=== PATIENT | male | born 1950 | race Caucasian/White ===

== ENCOUNTER 2018-03-19 12:24 | Emergency (ER) | payer OTHER, SELFPAY ==
--- NOTE | 2018-03-19 13:28 | RAD REPORT ---
EXAM DESCRIPTION: RAD - Chest Single View - 03/19/2018 1:09 pm CLINICAL HISTORY: syncope Chest pain. COMPARISON: No comparisons FINDINGS: Portable technique limits examination quality. The lungs are grossly clear. The heart is normal in size. No displaced fractures. IMPRESSION: No acute intrathoracic process suspected.
[2018-03-19] MEDS ORDERED: NA CHLORIDE 0.9% 1,000 ML ONE (13:33)
[2018-03-19 14:20] LABS: Absolute Lymphocytes (CBC) 2.1 K/uL (0.7-4.9); Absolute Monocytes 0.8 K/uL (0.1-1.3); Absolute Neutrophil 8.1 K/uL (1.8-8.0); Basophils % 0.3 % (0-1.3); Eosinophils % 0.4 % (0-4.4); Hematocrit 49.8 % (39.6-49.0); Lymphocytes % 18.8 % (15.3-44.8); MCH 30.7 pg (27.0-35.0); MCV 90.5 fL (80-100); MPV 8.8 fL (7.6-11.3); Monocytes % 7.1 % (3.3-12.3)
--- NOTE | 2018-03-19 14:27 | EKG ---
Test Date: 2018-03-19 Test Time: 12:37:56 Professional Caster: SONNY MEASUREMENT RESULTS: Intervals: Rate: 48 WY: 182 QRSD: 100 QT: 500 QTc: 446 [place]: P: 36 WY: 182 QRS: 39 T: 23 INTERPRETIVE STATEMENTS: Sinus bradycardia Otherwise normal ECG No previous ECG available for comparison Electronically Signed On 03-19-18 14:25:58 CDT by Samuel Kenny
[2018-03-19 14:33] LABS: Protime INR 1.1
[2018-03-19 14:38] LABS: Albumin 4.1 g/dL (3.4-5.0); Bilirubin Direct 0.2 mg/dL (0-0.2); Magnesium 2.5 mg/dL (1.8-2.4); Potassium 3.6 mmol/L (3.5-5.1); Protein, Total 8.2 g/dL (6.4-8.2)
--- NOTE | 2018-03-19 15:45 | EDPHYS ---
Physician Documentation [facility] Name: Angelo Urbina Age: 67 yrs Sex: Male : 1950 Arrival Date: 03/19/2018 Time: 12:27 Bed 18 Private MD: ED Physician Guerrero Farnsworth HPI: 03/19 12:42 This 67 yrs old Male presents to ER via EMS with complaints of Syncope. jr8 12:42 The patient has experienced syncope, became unresponsive, collapsed. Onset: The jr8 symptoms/episode began/occurred acutely, just prior to arrival, today. Duration: This was a single episode, that lasted 3 second(s). Context: the episode(s) was witnessed, by a bystander, occurred at a store, occurred while the patient was standing, Just prior to the episode the patient experienced diaphoresis, lightheadedness, nausea. Associated injury: The patient did not suffer any apparent associated injury. Associated signs and symptoms: The patient has no apparent associated signs or symptoms. Current symptoms: Currently, the patient is not experiencing any symptoms, the patient feels back to baseline, no decreased level of consciousness, no confusion, no dysphasia, no headache, no paralysis, no visual changes. The patient has not experienced similar symptoms in the past. The patient has been recently seen by a physician:. recent change in blood pressure medication after having recall on his original one . Historical: - Allergies: 12:29 No Known Allergies; aj - Home Meds: 14:10 losartan-hydrochlorothiazide 100-25 mg oral tab 1 tab once daily [Active]; Toprol XL aj 200 mg Oral Tb24 1 tab once daily [Active]; amlodipine 10 mg tab 1 tab once daily [Active]; - PMHx: 12:29 Hypertension; aj - PSHx: 12:29 None; aj - Immunization history:: Adult Immunizations up to date. - Social history:: Smoking status: Patient/guardian denies using tobacco. - Ebola Screening: : Patient negative for fever greater than or equal to 101.5 degrees Fahrenheit, and additional compatible Ebola Virus Disease symptoms Patient denies exposure to infectious person Patient denies travel to an Ebola-affected area in the 21 days before illness onset No symptoms or risks identified at this time. ROS: 12:42 Eyes: Negative for injury, pain, redness, and discharge, ENT: Negative for injury, jr8 pain, and discharge, Neck: Negative for injury, pain, and swelling, Cardiovascular: Negative for chest pain, palpitations, and edema, Respiratory: Negative for shortness of breath, cough, wheezing, and pleuritic chest pain, Abdomen/GI: Negative for abdominal pain, nausea, vomiting, diarrhea, and constipation, Back: Negative for injury and pain, MS/Extremity: Negative for injury and deformity, Skin: Negative for injury, rash, and discoloration. 12:42 Neuro: Positive for syncope. Exam: 12:42 Head/Face: Normocephalic, atraumatic. Eyes: Pupils equal round and reactive to light, jr8 extra-ocular motions intact. Lids and lashes normal. Conjunctiva and sclera are non-icteric and not injected. Cornea within normal limits. Periorbital areas with no swelling, redness, or edema. ENT: Nares patent. No nasal discharge, no septal abnormalities noted. Tympanic membranes are normal and external auditory canals are clear. Oropharynx with no redness, swelling, or masses, exudates, or evidence of obstruction, uvula midline. Mucous membranes moist. Neck: Trachea midline, no thyromegaly or masses palpated, and no cervical lymphadenopathy. Supple, full range of motion without nuchal rigidity, or vertebral point tenderness. No Meningismus. Cardiovascular: Regular rate and rhythm with a normal S1 and S2. No gallops, murmurs, or rubs. Normal PMI, no JVD. No pulse deficits. Respiratory: Lungs have equal breath sounds bilaterally, clear to auscultation and percussion. No rales, rhonchi or wheezes noted. No increased work of breathing, no retractions or nasal flaring. Abdomen/GI: Soft, non-tender, with normal bowel sounds. No distension or tympany. No guarding or rebound. No evidence of tenderness throughout. Back: No spinal tenderness. No costovertebral tenderness. Full range of motion. Skin: Warm, dry with normal turgor. Normal color with no rashes, no lesions, and no evidence of cellulitis. MS/ Extremity: Pulses equal, no cyanosis. Neurovascular intact. Full, normal range of motion. Neuro: Awake and alert, GCS 15, oriented to person, place, time, and situation. Cranial nerves II-XII grossly intact. Motor strength 5/5 in all extremities. Sensory grossly intact. Cerebellar exam normal. Normal gait. 13:05 ECG was reviewed by the Attending Physician. 8 Vital Signs: 12:29 BP 124 / 81; Pulse 52; Resp 20; Temp 98.7; Pulse Ox 99% on R/A; Weight 88.45 kg; Height aj 5 ft. 9 in. (175.26 cm); 13:30 BP 107 / 78 Supine; Pulse 55; aj 13:32 BP 139 / 78 Sitting; Pulse 55; aj 13:34 BP 126 / 79; Pulse 57; aj 14:50 BP 130 / 74; Pulse 56; Resp 20; Pulse Ox 98% on R/A; aj 15:54 BP 123 / 73; Pulse 57; Resp 16; Pulse Ox 97% on R/A; aj 12:29 Body Mass Index 28.80 (88.45 kg, 175.26 cm) aj NIH Stroke Scale Scores: 12:27 NIHSS Score: 0 aj MDM: 12:28 Patient medically screened. [facility] 14:45 ED course: Patient stated that he forgot to mention two other medications that he is on jr8 for BP and that he had taken more then what his normal dose is because he thought his BP was too high. Patient also on Toprol XL and amlodipine . 15:43 Data reviewed: vital signs, nurses notes, lab test result(s), EKG, radiologic studies, [facility] plain films, and as a result, I will discharge patient. Data interpreted: Pulse oximetry: on room air is 98 %. Interpretation: normal. Counseling: I had a detailed discussion with the patient and/or guardian regarding: the historical points, exam findings, and any diagnostic results supporting the discharge/admit diagnosis, lab results, radiology results, the need for outpatient follow up, a family practitioner, to return to the emergency department if symptoms worsen or persist or if there are any questions or concerns that arise at home. Response to treatment: the patient's symptoms have resolved after treatment. ED course: Patient without any complaint in ED currently HR and BP stable. Advised that he not take his medication for the rest of today and that he needs to not double up on his medicine ever unless specified by his PCP. To f/u with PCP tomorrow. If worse to come back. 03/19 12:39 Order name: Basic Metabolic Panel; Complete Time: 14:38 03/19 12:39 Order name: CBC with Diff; Complete Time: 14:33 03/19 12:39 Order name: CPK; Complete Time: 14:38 03/19 12:39 Order name: LFT's; Complete Time: 14:38 03/19 12:39 Order name: Magnesium; Complete Time: 14:38 03/19 12:39 Order name: NT PRO-BNP; Complete Time: 14:38 03/19 12:39 Order name: PT-INR; Complete Time: 14:35 03/19 12:39 Order name: Troponin (emerg Dept Use Only); Complete Time: 14:38 03/19 12:39 Order name: XRAY Chest (1 view); Complete Time: 13:30 03/19 12:39 Order name: EKG; Complete Time: 12:39 03/19 12:39 Order name: Cardiac monitoring; Complete Time: 13:00 03/19 12:39 Order name: EKG - Nurse/Tech; Complete Time: 13:00 03/19 12:39 Order name: IV Saline Lock; Complete Time: 13:00 03/19 12:39 Order name: Labs collected and sent; Complete Time: 13:00 03/19 12:39 Order name: O2 Per Protocol; Complete Time: 13:00 03/19 12:39 Order name: O2 Sat Monitoring; Complete Time: 13:00 03/19 13:14 Order name: Orthostatic Blood Pressure; Complete Time: 13:37 jr8 EC:05 Rate is 48 beats/min. Rhythm is regular, Sinus bradycardia. QRS [place] is Normal. [place] jr8 interval is normal at 182 msec. QT interval is normal at 446 msec. No Q waves. T waves are Inverted in lead III. No ST changes noted. Clinical impression: Sinus bradycardia. Interpreted by me. Reviewed by me. Administered Medications: 13:37 Drug: NS 0.9% 1000 ml Route: IV; Rate: 1000 ml; Site: right antecubital; aj 15:56 Follow up: Response: No adverse reaction; IV Status: Completed infusion; IV Intake: aj 1000ml Disposition: 19:06 Co-signature as Attending Physician, Guerrero Farnsworth MD I agree with the assessment and kdr plan of care. Disposition: 03/19/18 15:44 Discharged to Home. Impression: Syncope and collapse. - Condition is Stable. - Discharge Instructions: Syncope. - Medication Reconciliation Form, Thank You Letter, Antibiotic Education, Prescription Opioid Use form. - Follow up: Private Physician; When: Tomorrow; Reason: Recheck today's complaints, Continuance of care, Re-evaluation by your physician. - Problem is new. - Symptoms have improved. NIH Stroke Scale - NIH Stroke Score Date: 03/19/2018 Time: 12:27 Total Score = 0 1a. Level of Consciousness (LOC) - 0(Alert) 1b. Level of Consciousness (LOC) (Year \T\ Age) - 0(Both) 1c. LOC Commands (Open \T\ Closes Eyes/Unit Assembler) - 0(Both) 2. Best Gaze (Lateral Gaze Paresis) - 0(Normal) 3. Visual Field Loss - 0(No visual loss) 4. Facial Palsy - 0(Normal) 5a. Left Arm: Motor (10-second hold) - 0(No drift) 5b. Right Arm: Motor (10-second hold) - 0(No drift) 6a. Left Leg: Motor (5-second hold - always test supine) - 0(No drift) 6b. Right Leg: Motor (5-second hold - always test supine) - 0(No drift) 7. Limb Ataxia (finger/nose \T\ heel/knowles - test with eyes open) - 0(Absent) 8. Sensory Loss (pinprick arms/legs/face) - 0(Normal) 9. Best Language: Aphasia (description/naming/reading) - 0(No aphasia) 10. Dysarthria (speech clarity - read or repeat words) - 0(Normal) 11. Extinction and Inattention (visual/tactile/auditory/spatial/personal) - 0(No abnormality) Initials: arash Signatures: Dispatcher [employer] Magda Barkley RN RN aj Rittger, Kevin, MD MD kdr Roszak, Josh, PA PA jr8 Corrections: (The following items were deleted from the chart) 14:10 12:29 Home Meds: Unable to obtain; arash antoine 15:57 15:44 03/19/2018 15:44 Discharged to Home. Impression: Syncope and collapse. aj Condition is Stable. Forms are Medication Reconciliation Form, Thank You Letter, Antibiotic Education, Prescription Opioid Use. Follow up: Private Physician; When: Tomorrow; Reason: Recheck today's complaints, Continuance of care, Re-evaluation by your physician. Problem is new. Symptoms have improved. jr8
--- NOTE | 2018-03-19 15:45 | ER ---
Nurse's Notes [facility] Name: Angelo Urbina Age: 67 yrs Sex: Male : 1950 Arrival Date: 03/19/2018 Time: 12:27 Bed 18 Private MD: Diagnosis: Syncope and collapse Presentation: 03/19 12:27 Presenting complaint: Patient states: Reports syncopal episode just DIRECTOR PROSPECT while walking aj outside. Patient reports recent change in BP medication 2 days ago. Denies CP. Transition of care: patient was not received from another setting of care. Onset of symptoms was March 19, 2018. Risk Assessment: Do you want to hurt yourself or someone else? Patient reports no desire to harm self or others. Initial Sepsis Screen: Does the patient meet any 2 criteria? No. Patient's initial sepsis screen is negative. Does the patient have a suspected source of infection? No. Patient's initial sepsis screen is negative. Care prior to arrival: Glucose check: 107. 12:27 Method Of Arrival: EMS: [facility] 12:27 Acuity: FRANK 3 aj Triage Assessment: 12:29 General: Appears in no apparent distress. comfortable, Behavior is calm, cooperative, aj appropriate for age. Pain: Denies pain. Neuro: Level of Consciousness is awake, alert, obeys commands, Oriented to person, place, time, situation, Appropriate for age Reports dizziness, a syncopal episode. Respiratory: Airway is patent Respiratory effort is even, unlabored, Respiratory pattern is regular, symmetrical. Derm: Skin is intact, is healthy with good turgor, Skin is pink, warm \T\ dry. normal. Historical: - Allergies: 12:29 No Known Allergies; aj - Home Meds: 14:10 losartan-hydrochlorothiazide 100-25 mg oral tab 1 tab once daily [Active]; Toprol XL aj 200 mg Oral Tb24 1 tab once daily [Active]; amlodipine 10 mg tab 1 tab once daily [Active]; - PMHx: 12:29 Hypertension; aj - PSHx: 12:29 None; aj - Immunization history:: Adult Immunizations up to date. - Social history:: Smoking status: Patient/guardian denies using tobacco. - Ebola Screening: : Patient negative for fever greater than or equal to 101.5 degrees Fahrenheit, and additional compatible Ebola Virus Disease symptoms Patient denies exposure to infectious person Patient denies travel to an Ebola-affected area in the 21 days before illness onset No symptoms or risks identified at this time. Screenin:59 Abuse screen: Denies threats or abuse. Denies injuries from another. Nutritional aj screening: No deficits noted. Tuberculosis screening: No symptoms or risk factors identified. Fall Risk None identified. Assessment: 12:59 Reassessment: Patient appears in no apparent distress at this time. No changes from aj previously documented assessment. Patient and/or family updated on plan of care and expected duration. Pain level reassessed. Patient is alert, oriented x 3, equal unlabored respirations, skin warm/dry/pink. Neuro: Level of Consciousness is awake, alert, obeys commands, Oriented to person, place, time, situation, Appropriate for age. Cardiovascular: Denies chest pain, Rhythm is sinus bradycardia. Vital Signs: 12:29 BP 124 / 81; Pulse 52; Resp 20; Temp 98.7; Pulse Ox 99% on R/A; Weight 88.45 kg; Height aj 5 ft. 9 in. (175.26 cm); 13:30 BP 107 / 78 Supine; Pulse 55; aj 13:32 BP 139 / 78 Sitting; Pulse 55; aj 13:34 BP 126 / 79; Pulse 57; aj 14:50 BP 130 / 74; Pulse 56; Resp 20; Pulse Ox 98% on R/A; aj 15:54 BP 123 / 73; Pulse 57; Resp 16; Pulse Ox 97% on R/A; aj 12:29 Body Mass Index 28.80 (88.45 kg, 175.26 cm) aj NIH Stroke Scale Scores: 12:27 NIHSS Score: 0 aj ED Course: 12:27 Patient arrived in ED. aj 12:28 Juan J Teague PA is PHCP. jr8 12:28 Guerrero Farnsworth MD is Attending Physician. jr8 12:29 Triage completed. aj 12:29 Arm band placed on right wrist. Patient placed in an exam room, Patient Requested EKG. aj 12:59 Magda Turcios, RN is Primary Nurse. aj 12:59 Patient has correct armband on for positive identification. aj 12:59 Inserted saline lock: 22 gauge in right antecubital area, using aseptic technique. aj Blood collected. 13:09 XRAY Chest (1 view) In Process Unspecified. EDMS 13:09 X-ray completed. Portable x-ray completed in exam room. Patient tolerated procedure jb2 well. 15:54 No provider procedures requiring assistance completed. IV discontinued, intact, aj bleeding controlled, No redness/swelling at site. Pressure dressing applied. Administered Medications: 13:37 Drug: NS 0.9% 1000 ml Route: IV; Rate: 1000 ml; Site: right antecubital; aj 15:56 Follow up: Response: No adverse reaction; IV Status: Completed infusion; IV Intake: aj 1000ml Intake: 15:56 IV: 1000ml; Total: 1000ml. aj Outcome: 15:44 Discharge ordered by . angelica 15:54 Discharged to home ambulatory, with family. aj 15:54 Condition: good 15:54 Discharge instructions given to patient, Instructed on discharge instructions, follow up and referral plans. Demonstrated understanding of instructions, follow-up care. 15:57 Patient left the ED. arash NIH Stroke Scale - NIH Stroke Score Date: 03/19/2018 Time: 12:27 Total Score = 0 1a. Level of Consciousness (LOC) - 0(Alert) 1b. Level of Consciousness (LOC) (Year \T\ Age) - 0(Both) 1c. LOC Commands (Open \T\ Closes Eyes/Tree Trimmer Helper) - 0(Both) 2. Best Gaze (Lateral Gaze Paresis) - 0(Normal) 3. Visual Field Loss - 0(No visual loss) 4. Facial Palsy - 0(Normal) 5a. Left Arm: Motor (10-second hold) - 0(No drift) 5b. Right Arm: Motor (10-second hold) - 0(No drift) 6a. Left Leg: Motor (5-second hold - always test supine) - 0(No drift) 6b. Right Leg: Motor (5-second hold - always test supine) - 0(No drift) 7. Limb Ataxia (finger/nose \T\ heel/knowles - test with eyes open) - 0(Absent) 8. Sensory Loss (pinprick arms/legs/face) - 0(Normal) 9. Best Language: Aphasia (description/naming/reading) - 0(No aphasia) 10. Dysarthria (speech clarity - read or repeat words) - 0(Normal) 11. Extinction and Inattention (visual/tactile/auditory/spatial/personal) - 0(No abnormality) Initials: arash Signatures: Dispatcher [employer] Magda Barkley, RN RN Chalino King jb2 Juan J Teague PA PA jr8 Corrections: (The following items were deleted from the chart) 14:10 12:29 Home Meds: Unable to obtain; arash antoine
== END 2018-03-19 15:57 | disposition home or self-care (01) ==
LOC: ER 12:24
DX: R55 Syncope and collapse (principal); I10 Essential (primary) hypertension
CPT/HCPCS: 36415; 71045; 80048; 80076; 82550; 83735; 83880; 84484; 85025; 85610; 93005; 96360; 96361; 99284; J7030